=== PATIENT | male | born 1960 | race Caucasian/White ===

== ENCOUNTER → 2018-04-06 09:18 | Outpatient (CLI) | payer OTHER, SELFPAY | PROVIDERS: PCP Family Medicine; Visit Provider Family Medicine | DX: Z13.6 Encounter for screening for cardiovascular disorders (principal) | CPT/HCPCS: 93017 ==

== ENCOUNTER → 2019-06-05 15:30 | Outpatient (CLI) | payer OTHER, SELFPAY ==
--- NOTE | 2019-06-05 15:33 | XR_ITS ---
PROCEDURE: XR CHEST 2V CLINICAL HISTORY: MODERATE ASTHMATIC BRONCHITIS Cough COMPARISON: CXR CHEST(2 VIEWS-NOT PORTABLE) from 03/15/2013 CXR CHEST(2 VIEWS-NOT PORTABLE) from 05/13/2015 [id number] XR ribs LT min 3V w CXR1V from 11/03/2017 FINDINGS: The cardiomediastinal silhouette and pulmonary vascularity are within normal limits. The lungs are clear without infiltrates, suspicious nodules, or pleural effusions. No acute bony abnormalities. IMPRESSION: No acute findings. Dictated by: Anders Whitfield MD 06/05/2019 16:34 Electronically signed by Anders Whitfield MD in [place] 06/05/2019 16:34
== END ==
PROVIDERS: PCP Family Medicine; Visit Provider Family Medicine
DX: J45.41 Moderate persistent asthma with (acute) exacerbation (principal)
CPT/HCPCS: 71046

== ENCOUNTER 2019-07-16 06:38 | Observation (INO) ==
[2019-07-16 07:09] LABS: Basophils % 0.6 % (0.1-2.0); Eosinophils # 0.9 K/mm3 (0.0-0.4); Eosinophils % 13.8 % (0.1-12.0); Hematocrit 48.2 % (42.0-52.0); Hemoglobin 16.3 g/dL (14.1-18.0); Lymphocytes # 1.5 K/mm3 (0.7-4.5); Lymphocytes % 22.5 % (10-50); Mean Corpuscular HGB Conc 33.9 g/dL (31.8-35.4); Mean Corpuscular Volume 92.5 fl (80-94); Mean Platelet Volume 7.6 fl (7.4-10.4); Monocytes # 0.5 K/mm3 (0.1-1.0); Monocytes % 6.9 % (1.7-9.3); Neutrophils # 3.7 K/mm3 (1.8-7.8); Neutrophils % 56.3 % (37.0-80.0); Platelet Count 236 K/mm3 (142-424); Red Blood Count 5.22 M/mm3 (4.60-6.20); Red Cell Distribution Width 12.3 % (11.5-17.5); White Blood Count 6.6 K/mm3 (4.8-10.8)
[2019-07-16 07:19] LABS: Albumin Level 4.4 g/dl (3.5-5.0); Albumin/Globulin Ratio 1.8 (1.1-1.8); Anion Gap 13.7 mEq/L (5-15); Bilirubin,Total 0.5 mg/dl (0.2-1.3); Calcium 9.6 mg/dl (8.4-10.2); Globulin 2.4 g/dL (1.3-3.2); Total Protein,Serum 6.8 g/dl (6.3-8.2)
--- NOTE | 2019-07-16 08:05 | Emergency Department Note ---
ED Disposition Clinical Impression: Acute dyspnea, Acute exacerbation of chronic obstructive airways disease, Elevated troponin, SIRS (systemic inflammatory response syndrome) Disposition: Admitted as Observation Condition on Discharge: Good Referrals: Olamide Mueller MD [Primary Care Provider] - - Critical Care Critical Care Time: No Attestation: On 07/16/19, the high probability of a clinically significant, sudden or life threatening deterioration of the following system(s) required my full and direct attention, intervention and personal management. The time I documented below is in addition to time spent performing reported procedures but includes the following listed in this critical care notation. Medical Decision Making - Medical Records Medical records reviewed: Yes: I reviewed the patient's medical records. - Jonnathan Inquiry Pt receiving controlled substance: No Vital Signs: 07/16/19 06:53 07/16/19 07:10 Temperature 98.1 F Temperature Source Oral Pulse Rate 101 H Pulse Rate [Right Brachial] 116 H Respiratory Rate 26 H Blood Pressure [Right Arm] 151/82 H Blood Pressure Mean [Right Arm] 105 Blood Pressure Source [Right Arm] Automatic Cuff Blood Pressure Position [Right Arm] Sitting 02 Sat by Pulse Oximetry 88 L 93 L Oxygen Delivery Method Room Air Nasal Cannula Oxygen Flow Rate (LPM) 2 - Lab Data Lab results reviewed: Yes: I reviewed the patient's lab results. Lab Results 07/16/19 06:55: WBC 6.6, RBC 5.22, Hgb 16.3, Hct 48.2, MCV 92.5, MCH 31.3 H, MCHC 33.9, RDW 12.3, Plt Count 236, MPV 7.6, Neut % (Auto) 56.3, Lymph % (Auto) 22.5, [place] % (Auto) 6.9, Eos % (Auto) 13.8 H, Baso % (Auto) 0.6, Neut # (Auto) 3.7, Lymph # (Auto) 1.5, [place] # (Auto) 0.5, Eos # (Auto) 0.9 H, Baso # (Auto) 0.0 07/16/19 06:55: Sodium 139, Potassium 3.7, Chloride 104, Carbon Dioxide 25, Anion Gap 13.7, BUN 11, Creatinine 0.80, Estimated Creat Clear 110, Estimated GFR 99, Est GFR ( Amer) 119, Glucose 180 H, Calcium 9.6, Total Bilirubin 0.5, AST 23, ALT 28, Alkaline Phosphatase 73, Troponin I 0.15 H, Total Protein 6.8, Albumin 4.4, Globulin 2.4, Albumin/Globulin Ratio 1.8 07/16/19 06:55: Influenza Type A Ag Negative, Influenza Type B Ag Negative 07/16/19 06:55: Group A Strep Rapid Negative 07/16/19 06:55: Lactate 1.4 Result diagrams: 07/16/19 06:55 07/16/19 06:55 Orders (Tests/Meds): ED MEDICATIONS Discontinued Medications Generic Name Dose Route Start Last Admin Trade Name Freq PRN Reason Stop Dose Admin Albuterol/Ipratropium 3 ml 07/16/19 07:00 07/16/19 07:25 Duoneb 3ml Neb IH 07/16/19 07:01 3 ml ONCE ONE Administration Methylprednisolone Sodium Succinate 125 mg 07/16/19 07:00 07/16/19 07:02 Solu-Medrol 125mg/2ml Vial IV 07/16/19 07:01 125 mg ONCE ONE Administration ORDERS Category Date Time Status XR chest 2V Stat Exams 07/16/19 07:00 Taken Troponin I Q3H Lab 07/16/19 10:15 Ordered Troponin I Q3H Lab 07/16/19 13:15 Ordered Upper Respiratory Panel, PCR Stat Lab 07/16/19 07:10 Ordered Blood Culture Stat Micro 07/16/19 06:55 Received Strep Screen Confirmation Stat Micro 07/16/19 06:55 Received - Radiology Data #1 Image(s): Chest Image Reviewed: Yes I reviewed the patient's radiology image Preliminary Findings: Abnormal (copd) - ECG Data Tracing #1 Arrhythmias present: sinus tach Ischemic changes: non-specific ST-T wave changes - Physician Consults Physician Consulted: pop Reason -: Admission Additional Consult: inder Reason -: Pt condition - MARÍA ELENA Score for Non-Stemi Age of Patient: 60-69 years old Heart Rate: 110-149 bpm Systolic Blood Pressure: 140-159 mmHg Serum Creatinine: 0.80-1.19 mg/dl CHF [place] Class: I-No CHF Other Risk Factors: Elevated Cardiac Enzymes or Biomarkers Non-Stemi Risk Score: 127 Resp/SOB HPI - General Chief Complaint: Shortness of Breath/Dyspnea Stated Complaint: SOA.cough Time Seen by Provider: 07/16/19 07:10 Mode of Arrival: Family Vehicle Source of Information: Patient, Spouse, Medical Record Limitations: No Limitations Description of Symptoms (Recalled from ER Triage Doc. by RN): pt presents with severe shortness of air that he says began last night at 1700 and worsened thro ughout the night despite multiple albuterol neb treatments andhis inhaler; pt further states he has been on antibiotics for the last several months, and that as a copd'r he usually tries to get ahead of it when he feels something coming on. 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 denies any fever. denies any contact with anyone positive for the coronavirus. pt is alert, oriented, gcs 15. maintains only complaint is soa. - History of Present Illness pt with sob w/o chest pain over the last 2 days - has hx of copd but no fever or prod cough - no known ht dis and no known exposure to covd-19 Complaint: shortness of breath Onset (ago): day(s) Severity: moderate Known history of: COPD, diabetes Associated symptoms: denies other symptoms Treatment prior to arrival: none - Related Data Home oxygen amount: none Home Medications Medication Instructions Recorded Confirmed Albuterol Sulfate [Proair Hfa 2 puffs IH Q4HP PRN 11/03/17 11/03/17 90mcg/puff Inh] Dapagliflozin Propanediol [Farxiga] 10 mg PO BID 07/16/19 07/16/19 Dulaglutide [Trulicity] 1 inj SQ WEEKLY 07/16/19 07/16/19 Trazodone HCl 50 mg PO HS 07/16/19 07/16/19 Allergies Allergy/AdvReac Type Severity Reaction Status Date / Time No Known Allergies Allergy Verified 11/03/17 09:11 [facility] History - Hepatitis A Screen Drug use history?: No High risk sexual behaviors?: No History of sexually transmitted infection?: No Currently employed?: No Childcare worker?: No Do you have indoor plumbing?: Yes Do you have electricity?: Yes Attestation statement:: This patient has been screened for Hepatitis A risk factors. I have reviewed the patient's past medical history: Yes Medical History: Reports:: Diabetes Mellitus Type 2 Denies:: Cancer, MRSA Amputation: No Fractures: No - Social History Smoking Status: Never smoker Alcohol Intake: never ROS Obtained: Yes All systems reviewed & no additional complaints - Constitutional Constitutional: Denies fever(s) - Eyes Eyes: Denies change in vision - ENT Ears, Nose, Mouth, and Throat: Denies sore throat - Cardiovascular Cardiovascular: Reports as per HPI, Denies chest pain, Reports dyspnea - Respiratory Respiratory: Yes as per HPI, Yes cough, Yes dyspnea, No coughing up blood, No pain on inspiration - Gastrointestinal Gastrointestingal: Denies: abdominal pain - Genitourinary Male Genitourinary: Denies hematuria - Musculoskeletal Musculoskeletal: Denies joint pain, Denies joint swelling - Integumentary/Breasts Skin/Breast: Denies rash - Neurologic Neurologic: Denies focal weakness, Denies seizure-like activity Physical Exam - General General appearance: alert - Head Head exam: normocephalic - Eye Eye exam: Present: PERRL, EOMI - ENT ENT exam: Present: mucous membranes dry - Neck Neck exam: Present: trachea midline - Respiratory Respiratory exam: Present: wheezes. Absent: respiratory distress - Cardiovascular Cardiovascular exam: Present: regular rate, systolic murmur, +S4. Absent: rubs, gallop - Abdominal Exam Abdominal exam: Present: soft - Extremities Exam Extremities exam: Present: full ROM. Absent: calf tenderness - Neurological Exam Neurological exam: Present: alert, oriented X3, CN II-XII intact. Absent: motor sensory deficit - Psychiatric Psychiatric exam: Present: normal affect - Skin Skin exam: Absent: rash
[2019-07-16 08:27] LABS: Coronavirus 229E Not Detected (NotDetected); Coronavirus NL63 Not Detected (NotDetected); Coronavirus OC43 Not Detected (NotDetected); Coronovirus HKU1,PCR Not Detected (NotDetected)
--- NOTE | 2019-07-16 11:25 | History & Physical Report ---
*Chief complaint: Shortness of breath *History of present illness: This 59-year-old white male has a history of asthmatic bronchitis. He also has a strong family history of heart disease. 6 days ago he developed URI symptoms after being exposed to his 3-year-old granddaughter who had a cold. Symptoms showed up on Wednesday and Wednesday. he was better but Wednesday he developed cough. Wednesday he had cough and congestion and move some lawn furniture at about 6 PM and developed additional shortness of breath and chest tightness. He presented to the emergency room at [facility] at 6:00 AM. He was evaluated and admitted. There is no history that would indicate exposure to mullins virus 19. He has not run a fever during this period of time. It is of concern that his troponin was elevated at 0.15 in the emergency room. Repeat troponin at this time shows a 0.10. In the emergency room his EKG showed sinus tachycardia but no ST-T changes of concern. He does have type 2 diabetes mellitus. [facility] History Medical History: Reports:: Diabetes Mellitus Type 2, Hyperlipidemia, Hypertension Denies:: Cancer, Diabetes Mellitus Type 1, Internal Pacemaker, MRSA *Have you ever received a pneumonia vaccine?: Yes *Have you received a flu vaccine this season?: Yes Other Surgeries: No: Pacemaker Amputation: No Fractures: No - *Social History Educational Level: Completed College Smoking Status: Former smoker # Packs/Day (cigarettes): 1 Alcohol Intake: current Alcohol Intake Frequency:: 0-2 drinks per day *Occupational Status:: employed Household Members: spouse *Travel in the last 8 weeks: None Family Hx:: Coronary Artery Disease, Diabetes, Heart Attack, Hyperlipidemia, Hypertension Review of Systems - Constitutional Denies body ache(s), Denies chills, Denies lack of energy, Denies weakness - Eyes Denies change in vision - ENT Denies difficulty swallowing, Denies hoarseness, Denies dizziness - *Cardiovascular Reports chest pain (He states chest tightness and relates it to his chronic asthma.), Reports shortness of breath, Reports shortness of breath with activity, Denies irregular heart rhythm, Denies leg swelling, Denies lightheadedness, Denies shortness of breath when lying down, Denies rapid, pounding, or irregular heartbeat, Denies fainting - *Respiratory Reports chest congestion, Reports cough, Reports shortness of breath, Denies coughing up blood - *Gastrointestinal Denies abdominal pain, Denies change in bowel habits, Denies constipation - *Genitourinary Denies difficulty urinating - *Musculoskeletal Denies abnormal walking, Denies joint pain - Integumentary/Breasts Denies lesions - *Neurologic Denies localized weakness, Denies seizure-like activity - Psychiatric Denies abnormal sleep pattern, Denies lack of enjoyment, Denies anxiety - Allergic/Immunologic Denies GI upset with certain foods Meds Home Medications Medication Instructions Recorded Confirmed Type Albuterol Sulfate [Proair Hfa 2 puffs IH Q4HP PRN 11/03/17 07/16/19 History 90mcg/puff Inh] Dapagliflozin Propanediol [Farxiga] 10 mg PO BID 07/16/19 07/16/19 History Dulaglutide [Trulicity] 1 inj SQ WEEKLY 07/16/19 07/16/19 History Trazodone HCl 50 mg PO HS 07/16/19 07/16/19 History Allergies Allergy/AdvReac Type Severity Reaction Status Date / Time No Known Allergies Allergy Verified 11/03/17 09:11 Exam Vital signs and Labs for Last 24 Hours: Temp Pulse Resp BP Pulse Ox 98.0 F 112 H 18 132/84 91 L 07/16/19 09:01 07/16/19 09:01 07/16/19 09:01 07/16/19 09:01 07/16/19 09:01 Laboratory Results - last 24 hr 07/16/19 06:55: WBC 6.6, RBC 5.22, Hgb 16.3, Hct 48.2, MCV 92.5, MCH 31.3 H, MCHC 33.9, RDW 12.3, Plt Count 236, MPV 7.6, Neut % (Auto) 56.3, Lymph % (Auto) 22.5, [place] % (Auto) 6.9, Eos % (Auto) 13.8 H, Baso % (Auto) 0.6, Neut # (Auto) 3.7, Lymph # (Auto) 1.5, [place] # (Auto) 0.5, Eos # (Auto) 0.9 H, Baso # (Auto) 0.0 07/16/19 06:55: Sodium 139, Potassium 3.7, Chloride 104, Carbon Dioxide 25, Anion Gap 13.7, BUN 11, Creatinine 0.80, Estimated Creat Clear 110, Estimated GFR 99, Est GFR ( Amer) 119, Glucose 180 H, Calcium 9.6, Total Bilirubin 0.5, AST 23, ALT 28, Alkaline Phosphatase 73, Troponin I 0.15 H, Total Protein 6.8, Albumin 4.4, Globulin 2.4, Albumin/Globulin Ratio 1.8 07/16/19 06:55: Influenza Type A Ag Negative, Influenza Type B Ag Negative 07/16/19 06:55: Group A Strep Rapid Negative 07/16/19 06:55: Lactate 1.4 07/16/19 06:55: D-Dimer < 100 07/16/19 06:55: Magnesium 1.9 07/16/19 08:19: Chlamy pneumoniae PCR Not detected, Adenovirus (PCR) Not detected, B. pertussis DNA (PCR) Not detected, Coronavirus OC43 (PCR) Not detected, Coronavirus HKU1 (PCR) Not detected, Coronavirus 229E (PCR) Not detected, Coronavirus NL63 (PCR) Not detected, Human Metapneumovir PCR Not detected, Influenza A (H1) PCR Not detected, Influ A (H1N1/09) PCR Not detected, Influenza A (H3) PCR Not detected, Influenza Type A (PCR) Not detected, Influenza Type B (PCR) Not detected, M. pneumoniae (PCR) Not detected, Parainfluenza 1 (PCR) Not detected, Parainfluenza 2 (PCR) Not detected, Parainfluenza 3 (PCR) Not detected, Parainfluenza 4 (PCR) Not detected, RSV (PCR) Not detected, Entero/Rhino (PCR) Detected A 07/16/19 10:15: Troponin I 0.10 H Laboratory Tests 07/16/19 07/16/19 06:55 10:15 Troponin I 0.15 H 0.10 H I & O for Last 24 hours: Intake & Output 07/13/19 07/14/19 07/15/19 07/16/19 11:59 11:59 11:59 11:59 Weight 152 lb 6 oz - Constitutional no acute distress - *Routine HEENT Exam Eye: Present: PERRL ENT: Present: mucous membranes moist - *Routine Neck Exam Present: supple. Absent: JVD, carotid bruit - Routine Chest/Breast/Axilla Exam Chest wall: Absent: tenderness - *Routine Respiratory Exam Present: decreased breath sounds, wheezes - *Routine Cardiovascular Exam Present: tachycardia (Sinus) - *Routine Abdominal Exam Present: soft. Absent: tenderness - *Routine Extremities Exam Absent: edema - *Routine Neurological Exam Present: alert, oriented X3 H&P: Result - Imaging and Cardiology Chest x-ray Status: final report Assessment and Plan (1) Acute bronchitis with asthma with acute exacerbation Current visit: Yes Status: Acute Category: Medical Code(s): J20.9 - Acute bronchitis, unspecified; J45.901 - Unspecified asthma with (acute) exacerbation (2) Rhinovirus infection Current visit: Yes Status: Acute Category: Medical Code(s): B34.8 - Other viral infections of unspecified site (3) Type 2 diabetes mellitus Current visit: Yes Status: Acute Category: Medical Code(s): E11.9 - Type 2 diabetes mellitus without complications (4) Acute dyspnea Current visit: Yes Status: Acute Category: Medical Code(s): R06.00 - Dyspnea, unspecified (5) Elevated troponin Current visit: Yes Status: Acute Category: Medical Code(s): R79.89 - Other specified abnormal findings of blood chemistry - Assessment and plan all Dx Assessment and Plan for all problems:: See orders. Respiratory treatments. Steroids. Repeat EKG ordered. Cardiology consultation.
[2019-07-17 06:41] LABS: Anion Gap 13.2 mEq/L (5-15); Calcium 9.7 mg/dl (8.4-10.2); Chol/HDL Ratio 3.1 (1-3.5)
[2019-07-17 06:59] LABS: Hematocrit 47.1 % (42.0-52.0); Hemoglobin 15.6 g/dL (14.1-18.0); Lymphocytes # 0.5 K/mm3 (0.7-4.5); Lymphocytes % 5.7 % (10-50); Mean Corpuscular HGB Conc 33.2 g/dL (31.8-35.4); Mean Corpuscular Volume 94.2 fl (80-94); Monocytes # 0.2 K/mm3 (0.1-1.0); Neutrophils # 7.9 K/mm3 (1.8-7.8); Neutrophils % 92.2 % (37.0-80.0); Platelet Count 272 K/mm3 (142-424); Red Cell Distribution Width 12.6 % (11.5-17.5); White Blood Count 8.6 K/mm3 (4.8-10.8)
--- NOTE | 2019-07-17 07:46 | Consult Report ---
History of Present Illness Consult date: 07/17/19 Requesting physician: Olamide Mueller Consult reason: chest pain, shortness of breath Chief complaint: SOA, Chest pain Additional Medical History:: 1. Diabetes mellitus, type II, treated since 2001 with recent hemoglobin A1c in the 7-8 range 2. Cumulative tobacco use of 3-1/2 years over his lifetime (2 years in the 1980s and 6 months after his mother in 1998) 3. Family history of coronary artery disease in his older siblings in their 60s and 70s 4. Left carotid bruit on exam, 07/2019 5. Non-ST elevation PA, 07/2019 6. Respiratory illness, 07/2019 7. History of normal exercise Myoview, 2013 and normal Jose protocol stress test with no imaging, 2016 History of present illness: This 59-year-old white male has a history of asthmatic bronchitis. He also has a strong family history of heart disease. 6 days ago he developed URI symptoms after being exposed to his 3-year-old granddaughter who had a cold. Symptoms showed up on Wednesday and Wednesday. he was better but Wednesday he developed cough. Wednesday he had cough and congestion and move some lawn furniture at about 6 PM and developed additional shortness of breath and chest tightness. He presented to the emergency room at [facility] at 6:00 AM. He was evaluated and admitted. There is no history that would indicate exposure to mullins virus 19. He has not run a fever during this period of time. It is of concern that his troponin was elevated at 0.15 in the emergency room. Repeat troponin at this time shows a 0.10. In the emergency room his EKG showed sinus tachycardia but no ST-T changes of concern. He does have type 2 diabetes mellitus. The above per Dr. Mueller Patient relates 2 days of waxing and waning chest discomfort (like a gorilla sitting on his chest) prior to admission. No further chest pain since admission and application of nitroglycerin paste. History of exercise Myoview in 2013 with no ischemia and normal ejection fraction. Routine stress test normal in 2017 with 9-1/2 minutes of activity and 10.1 METS achieved. [facility] History Medical History: Reports:: Diabetes Mellitus Type 2, Hyperlipidemia, Hypertension Denies:: Cancer, Diabetes Mellitus Type 1, Internal Pacemaker, MRSA *Have you ever received a pneumonia vaccine?: Yes *Have you received a flu vaccine this season?: Yes Other Surgeries: No: Pacemaker Amputation: No Fractures: No - *Social History Educational Level: Completed College Smoking Status: Former smoker # Packs/Day (cigarettes): 1 Alcohol Intake: current Alcohol Intake Frequency:: 0-2 drinks per day *Occupational Status:: employed Household Members: spouse *Travel in the last 8 weeks: None Family Hx:: Coronary Artery Disease, Diabetes, Heart Attack, Hyperlipidemia, Hypertension Meds Home Medications Medication Instructions Recorded Confirmed Type Albuterol Sulfate [Proair Hfa 2 puffs IH Q4HP PRN 11/03/17 07/16/19 History 90mcg/puff Inh] Dapagliflozin Propanediol [Farxiga] 10 mg PO DAILY 07/16/19 07/17/19 History Dulaglutide [Trulicity] 1 inj SQ WEEKLY 07/16/19 07/16/19 History Trazodone HCl 50 mg PO HS 07/16/19 07/16/19 History Diclofenac Sodium [Diclofenac 75mg 75 mg PO BID 07/17/19 07/17/19 History Tab] Allergies Allergy/AdvReac Type Severity Reaction Status Date / Time No Known Allergies Allergy Verified 11/03/17 09:11 Review of Systems - Review of Systems Review of systems:: pertinent systems reviewed and negative unless documented below - *Cardiovascular Reports chest pain - *Respiratory Reports cough, Reports shortness of breath - *Gastrointestinal Denies loose stools, Denies nausea, Denies vomiting - *Genitourinary Denies blood in urine - *Musculoskeletal Denies joint pain, Denies back pain - *Neurologic Denies abnormal walking, Denies localized weakness, Denies seizure-like activity, Denies fainting, Denies dizziness, Denies weakness Exam Vital signs and Labs for Last 24 Hours: Temp Pulse Resp BP Pulse Ox 97.8 F 103 H 17 129/80 94 L 07/17/19 04:00 07/17/19 06:40 07/17/19 04:00 07/17/19 04:00 07/17/19 07:29 Laboratory Results - last 24 hr 07/16/19 06:55: D-Dimer < 100 07/16/19 06:55: Magnesium 1.9 07/16/19 08:19: Chlamy pneumoniae PCR Not detected, Adenovirus (PCR) Not detected, B. pertussis DNA (PCR) Not detected, Coronavirus OC43 (PCR) Not detected, Coronavirus HKU1 (PCR) Not detected, Coronavirus 229E (PCR) Not detected, Coronavirus NL63 (PCR) Not detected, Human Metapneumovir PCR Not detected, Influenza A (H1) PCR Not detected, Influ A (H1N1/09) PCR Not detected, Influenza A (H3) PCR Not detected, Influenza Type A (PCR) Not detected, Influenza Type B (PCR) Not detected, M. pneumoniae (PCR) Not detected, Parainfluenza 1 (PCR) Not detected, Parainfluenza 2 (PCR) Not detected, Parainfluenza 3 (PCR) Not detected, Parainfluenza 4 (PCR) Not detected, RSV (PCR) Not detected, Entero/Rhino (PCR) Detected A 07/16/19 10:15: Troponin I 0.10 H 07/16/19 13:00: Troponin I 0.08 H 07/17/19 05:45: WBC 8.6 D, RBC 5.00, Hgb 15.6, Hct 47.1, MCV 94.2 H, MCH 31.2, MCHC 33.2, RDW 12.6, Plt Count 272, MPV 7.0 L, Neut % (Auto) 92.2 H, Lymph % (Auto) 5.7 L, [place] % (Auto) 2.0, Eos % (Auto) 0.0 L, Baso % (Auto) 0.0 L, Neut # (Auto) 7.9 H, Lymph # (Auto) 0.5 L, [place] # (Auto) 0.2, Eos # (Auto) 0.0, Baso # (Auto) 0.0 07/17/19 05:45: Sodium 137, Potassium 4.2, Chloride 106, Carbon Dioxide 22, Anion Gap 13.2, BUN 19 D, Creatinine 0.70, Estimated Creat Clear 110, Estimated GFR 115, Est GFR ( Amer) 139, Glucose 196 H, Calcium 9.7, Triglycerides 55, Cholesterol 187, LDL Cholesterol Direct 108.63, VLDL Cholesterol 11, HDL Cholesterol 60, Cholesterol/HDL Ratio 3.1 I & O for Last 24 hours: Intake & Output 07/14/19 07/15/19 07/16/19 07/17/19 11:59 11:59 11:59 11:59 Intake Total 1796 / 1796 Balance 179 / 1796 Weight 152 lb 6 oz 152 lb 2 oz Microbiology Reports for the Last 24 Hours: Microbiology 07/16/19 00:00 Sputum - Expectorated Sputum Gram Stain - Final 07/16/19 00:00 Sputum - Expectorated Sputum Sputum Culture - Final - *Routine HEENT Exam Head: Present: normocephalic Eye: Present: EOMI, PERRL ENT: Present: mucous membranes moist - *Routine Neck Exam Present: supple. Absent: JVD - *Routine Respiratory Exam Present: rhonchi, wheezes. Absent: accessory muscle use, rales - *Routine Cardiovascular Exam Present: RRR, tachycardia. Absent: murmur, gallop, rubs - *Routine Abdominal Exam Present: soft. Absent: tenderness, distended, guarding - *Routine Extremities Exam Absent: edema, calf tenderness - *Routine Neurological Exam Present: alert, oriented X3, moving all extremities Assessment and Plan (1) Acute bronchitis with asthma with acute exacerbation Current visit: Yes Status: Acute Category: Medical Code(s): J20.9 - Acute bronchitis, unspecified; J45.901 - Unspecified asthma with (acute) exacerbation (2) Rhinovirus infection Current visit: Yes Status: Acute Category: Medical Code(s): B34.8 - Other viral infections of unspecified site (3) Type 2 diabetes mellitus Current visit: Yes Status: Acute Category: Medical Code(s): E11.9 - Type 2 diabetes mellitus without complications (4) Acute dyspnea Current visit: Yes Status: Acute Category: Medical Code(s): R06.00 - Dyspnea, unspecified (5) Elevated troponin Current visit: Yes Status: Acute Category: Medical Code(s): R79.89 - Other specified abnormal findings of blood chemistry - Assessment and plan all Dx Assessment and Plan for all problems:: 1. Elevated troponin in a long-term diabetic with concern for non-ST elevation PA. Patient would not be able to tolerate exercise stress testing or chemical stress testing due to his lung disease. Recommend proceeding with cardiac catheterization to further evaluate his coronary arteries. His EKG's show sinus rhythm with no acute ST segment changes noted. 2. Tachycardia felt secondary to respiratory illness (positive for rhinovirus, felt originated from exposure to granddaughter). Patient has remained afebrile during his stay. Chest x-ray was read as COPD with no infiltrates. 3. DM, type 2, per Dr. Mueller 4. Left carotid bruit, will obtain carotid ultrasound
--- NOTE | 2019-07-17 07:52 | Pharmacy Consult Notes ---
[facility] Pharmacy VTE Monitoring - Patient Demographics Admission date: 07/17/19 Report Date: 07/17/19 Time: 07:51 Allergies/Adverse Reactions: Patient Allergies No Known Allergies Allergy (Verified 11/03/17 09:11) Height: 1.85 m Weight: 69.003 kg Patient Problems: Current Active Problems Acute dyspnea (Acute) Acute exacerbation of chronic obstructive airways disease (Acute) Elevated troponin (Acute) SIRS (systemic inflammatory response syndrome) (Acute) Acute bronchitis with asthma with acute exacerbation (Acute) Rhinovirus infection (Acute) Type 2 diabetes mellitus (Acute) - VTE Risk Labs: VTE Related Lab Results Hgb 15.6 g/dL (14.1-18.0) 07/17/19 05:45 Hct 47.1 % (42.0-52.0) 07/17/19 05:45 Plt Count 272 K/mm3 (142-424) 07/17/19 05:45 BUN 19 mg/dl (9-20) D 07/17/19 05:45 Creatinine 0.70 mg/dl (0.66-1.25) 07/17/19 05:45 Estimated Creat Clear 110 mL/min (50-200) 07/17/19 05:45 Was VTE Risk Assessment Performed: Yes VTE Score: 3 VTE Risk Level: Low Risk Clinical Trial Participant: No - Prophylaxis VTE Prophylaxis Ordered?: Yes Types of VTE Prophylaxis: TEDS Knee High
[2019-07-17 08:05] LABS: Lymphocytes % 7 % (10-50); Monocytes % 5 % (2-9); Neutrophils % 88 % (42-76); Total Cells Counted 100
[2019-07-17 08:06] LABS: RBC Morphology Normal
--- NOTE | 2019-07-17 09:20 | Progress Note ---
Internal Medicine - PN: Subj *Date: 07/17/19 *Time: 09:18 Interval history: He feels much better. He rested better and slept for about an hour and a half. He is breathing much better. Heart catheterization is planned for this morning. Exam Vital signs and Labs for Last 24 Hours: Temp Pulse Resp BP Pulse Ox 97.9 F 104 H 18 129/78 95 07/17/19 08:00 07/17/19 08:00 07/17/19 08:00 07/17/19 08:00 07/17/19 08:00 Laboratory Results - last 24 hr 07/16/19 08:19: Chlamy pneumoniae PCR Not detected, Adenovirus (PCR) Not detected, B. pertussis DNA (PCR) Not detected, Coronavirus OC43 (PCR) Not detected, Coronavirus HKU1 (PCR) Not detected, Coronavirus 229E (PCR) Not detected, Coronavirus NL63 (PCR) Not detected, Human Metapneumovir PCR Not detected, Influenza A (H1) PCR Not detected, Influ A (H1N1/09) PCR Not detected, Influenza A (H3) PCR Not detected, Influenza Type A (PCR) Not detected, Influenza Type B (PCR) Not detected, M. pneumoniae (PCR) Not detected, Parainfluenza 1 (PCR) Not detected, Parainfluenza 2 (PCR) Not detected, Parainfluenza 3 (PCR) Not detected, Parainfluenza 4 (PCR) Not detected, RSV (PCR) Not detected, Entero/Rhino (PCR) Detected A 07/16/19 10:15: Troponin I 0.10 H 07/16/19 13:00: Troponin I 0.08 H 07/17/19 05:45: WBC 8.6 D, RBC 5.00, Hgb 15.6, Hct 47.1, MCV 94.2 H, MCH 31.2, MCHC 33.2, RDW 12.6, Plt Count 272, MPV 7.0 L, Neut % (Auto) 92.2 H, Lymph % (Auto) 5.7 L, [place] % (Auto) 2.0, Eos % (Auto) 0.0 L, Baso % (Auto) 0.0 L, Neut # (Auto) 7.9 H, Lymph # (Auto) 0.5 L, [place] # (Auto) 0.2, Eos # (Auto) 0.0, Baso # (Auto) 0.0, Total Counted 100, Neutrophils % (Manual) 88 H, Lymphocytes % (Manual) 7 L, Monocytes % (Manual) 5, Platelet Estimate Normal, RBC Morphology Normal 07/17/19 05:45: Sodium 137, Potassium 4.2, Chloride 106, Carbon Dioxide 22, Anion Gap 13.2, BUN 19 D, Creatinine 0.70, Estimated Creat Clear 110, Estimated GFR 115, Est GFR ( Amer) 139, Glucose 196 H, Calcium 9.7, Triglycerides 55, Cholesterol 187, LDL Cholesterol Direct 108.63, VLDL Cholesterol 11, HDL Cholesterol 60, Cholesterol/HDL Ratio 3.1 I & O for Last 24 hours: Intake & Output 07/14/19 07/15/19 07/16/19 07/17/19 11:59 11:59 11:59 11:59 Intake Total 1915 Balance 1915 Weight 152 lb 6 oz 152 lb 2 oz Microbiology Reports for the Last 24 Hours: Microbiology 07/16/19 00:00 Sputum - Expectorated Sputum Gram Stain - Final 07/16/19 00:00 Sputum - Expectorated Sputum Sputum Culture - Final - Constitutional no acute distress - *Routine Respiratory Exam Present: decreased breath sounds, CTA bilaterally, wheezes (Much less) - *Routine Extremities Exam Absent: edema Assessment and Plan (1) Acute bronchitis with asthma with acute exacerbation Current visit: Yes Status: Acute Category: Medical Code(s): J20.9 - Acute bronchitis, unspecified; J45.901 - Unspecified asthma with (acute) exacerbation (2) Rhinovirus infection Current visit: Yes Status: Acute Category: Medical Code(s): B34.8 - Other viral infections of unspecified site (3) Type 2 diabetes mellitus Current visit: Yes Status: Acute Category: Medical Code(s): E11.9 - Type 2 diabetes mellitus without complications (4) Acute dyspnea Current visit: Yes Status: Acute Category: Medical Code(s): R06.00 - Dyspnea, unspecified (5) Elevated troponin Current visit: Yes Status: Acute Category: Medical Code(s): R79.89 - Other specified abnormal findings of blood chemistry - Assessment and plan all Dx Assessment and Plan for all problems:: Heart catheterization planned for this morning.
--- NOTE | 2019-07-17 18:24 | Cardiology Report ---
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 Laterality: Bilateral Study Quality: Good Indications: left carotid bruit Risk Factors Hypertension: Hyperlipidemia Diabetes, Doppler Spectral Velocity Analysis dICA (R) 66.60/26.20 cm/sdICA (L) 44.00/20.60 cm/s Fabio (R) 74.10/25.40 cm/smICA (L) 56.60/18.30 cm/s pICA (R) 97.40/20.20 cm/spICA (L) 86.10/20.70 cm/s dCCA (R) 121.40/24.60 cm/sdCCA (L) 135.60/29.40 cm/s pCCA (R) 95.90/13.80 cm/spCCA (L) 147.20/29.40 cm/s Vert (R) 57.60/10.20 cm/sVert (L) 64.70/19.60 cm/s ICA/CCA 0.80 ICA/CCA 0.60 Findings Duplex evaluation demonstrates stenosis of the right proximal internal carotid artery <20% with PSV <140 cm/sec, EDV <100 cm/sec, and IC/CC Ratio <4.0.Duplex evaluation demonstrates stenosis of the left proximal internal carotid artery <20% with PSV <140 cm/sec, EDV <100 cm/sec, and IC/CC Ratio <4.0.Antegrade flow seen bilateral vertebral arteries. Conclusion No increased velocities to suggest hemodynamically significant stenosis in either internal carotid artery. Electronically signed by : Anders Whitfield MD 07/17/2019 18:23:42
[2019-07-18 06:57] LABS: Anion Gap 15.6 mEq/L (5-15); Calcium 9.5 mg/dl (8.4-10.2)
[2019-07-18 07:24] LABS: Eosinophils % 0.1 % (0.1-12.0); Hematocrit 47.3 % (42.0-52.0); Hemoglobin 15.6 g/dL (14.1-18.0); Lymphocytes # 0.6 K/mm3 (0.7-4.5); Lymphocytes % 4.5 % (10-50); Mean Corpuscular HGB Conc 32.9 g/dL (31.8-35.4); Mean Corpuscular Volume 96.3 fl (80-94); Monocytes # 0.3 K/mm3 (0.1-1.0); Monocytes % 1.9 % (1.7-9.3); Neutrophils # 12.7 K/mm3 (1.8-7.8); Neutrophils % 93.6 % (37.0-80.0); Platelet Count 257 K/mm3 (142-424); Red Blood Count 4.92 M/mm3 (4.60-6.20); Red Cell Distribution Width 12.7 % (11.5-17.5); White Blood Count 13.6 K/mm3 (4.8-10.8)
--- NOTE | 2019-07-18 08:57 | Progress Note ---
Subjective Date: 07/18/19 Time: 08:54 Principal diagnosis: NSTEMI Interval history: 59 yo WM in bed in NAD. Still with some SOA, cough and congestion but feels it is breaking up and improving. Results of [facility] reviewed and questions answered. Recommend pt off work up to 4-6 wks to recover. Exam Vital signs and Labs for Last 24 Hours: Temp Pulse Resp BP Pulse Ox 98.0 F 111 H 17 128/74 95 07/18/19 08:00 07/18/19 08:00 07/18/19 08:00 07/18/19 08:00 07/18/19 08:00 Laboratory Results - last 24 hr 07/18/19 06:30: WBC 13.6 H D, RBC 4.92, Hgb 15.6, Hct 47.3, MCV 96.3 H, MCH 31.7 H, MCHC 32.9, RDW 12.7, Plt Count 257, MPV 8.0, Neut % (Auto) 93.6 H, Lymph % (Auto) 4.5 L, [place] % (Auto) 1.9, Eos % (Auto) 0.1, Baso % (Auto) 0.0 L, Neut # (Auto) 12.7 H, Lymph # (Auto) 0.6 L, [place] # (Auto) 0.3, Eos # (Auto) 0.0, Baso # (Auto) 0.0 07/18/19 06:30: Sodium 139, Potassium 4.6, Chloride 105, Carbon Dioxide 23, Anion Gap 15.6 H, BUN 23 H, Creatinine 0.80, Estimated Creat Clear 98, Estimated GFR 99, Est GFR ( Amer) 119, Glucose 237 H, Calcium 9.5 I & O for Last 24 hours: Intake & Output 07/15/19 07/16/19 07/17/19 07/18/19 11:59 11:59 11:59 11:59 Intake Total 1915 Balance 1915 Weight 152 lb 6 oz 152 lb 2 oz 155 lb 3 oz Microbiology Reports for the Last 24 Hours: Microbiology 07/16/19 06:55 Blood Blood Culture - Preliminary NO GROWTH AFTER 48 HOURS 07/16/19 06:55 Blood Blood Culture - Preliminary NO GROWTH AFTER 48 HOURS 07/16/19 06:55 Throat Group A Streptococcus Screen (ALCON) - Final Negative for Group A Streptococcus. - *Routine HEENT Exam Head: Present: normocephalic Eye: Present: EOMI, PERRL ENT: Present: mucous membranes moist - *Routine Respiratory Exam Present: rhonchi, wheezes. Absent: accessory muscle use, rales - *Routine Cardiovascular Exam Present: RRR. Absent: murmur, gallop, rubs - *Routine Abdominal Exam Present: soft. Absent: tenderness, distended, guarding - *Routine Extremities Exam Absent: edema, calf tenderness - *Routine Neurological Exam Present: alert, oriented X3, moving all extremities Progress Note: A&P (1) Acute bronchitis with asthma with acute exacerbation Status: Acute Current Visit: Yes (2) Rhinovirus infection Status: Acute Current Visit: Yes (3) Type 2 diabetes mellitus Status: Acute Current Visit: Yes (4) Acute dyspnea Status: Acute Current Visit: Yes (5) NSTEMI (non-ST elevated myocardial infarction) Status: Acute Current Visit: Yes (6) CAD (coronary artery disease) Status: Acute Current Visit: Yes Assessment and Plan for All Diagnoses:: 1. NSTEMI with occluded Circumflex artery. Continue ASA, statin and plavix along with bisoprolol and isosorbide. No arrhythmias on telemetry. Ok for discharge home from cardiology standpoint with follow up in 1-2 wks. Off work for 4-6 wks due to NSTEMI and stress of job. Echo results pending but prelimi nary EF >60%. 2. DM, per PCP. 3. Rhinovirus
[2019-07-18 10:37] LABS: Lymphocytes % 7 % (10-50); Monocytes % 3 % (2-9); Neutrophils % 90 % (42-76); RBC Morphology Normal; Total Cells Counted 100
--- NOTE | 2019-07-18 11:11 | Progress Note ---
Internal Medicine - PN: Subj *Date: 07/18/19 *Time: 09:00 Interval history: He feels well. Slept 3 hours. From Cardiology: 1. NSTEMI with occluded Circumflex artery. Continue ASA, statin and plavix along with bisoprolol and isosorbide. No arrhythmias on telemetry. Ok for discharge home from cardiology standpoint with follow up in 1-2 wks. Off work for 4-6 wks due to NSTEMI and stress of job. Echo results pending but preliminary EF >60%. 2. DM, per PCP. 3. Rhinovirus Exam Vital signs and Labs for Last 24 Hours: Temp Pulse Resp BP Pulse Ox 98.0 F 111 H 17 128/74 95 07/18/19 08:00 07/18/19 08:00 07/18/19 08:00 07/18/19 08:00 07/18/19 08:00 Laboratory Results - last 24 hr 07/18/19 06:30: WBC 13.6 H D, RBC 4.92, Hgb 15.6, Hct 47.3, MCV 96.3 H, MCH 31.7 H, MCHC 32.9, RDW 12.7, Plt Count 257, MPV 8.0, Neut % (Auto) 93.6 H, Lymph % (Auto) 4.5 L, [place] % (Auto) 1.9, Eos % (Auto) 0.1, Baso % (Auto) 0.0 L, Neut # (Auto) 12.7 H, Lymph # (Auto) 0.6 L, [place] # (Auto) 0.3, Eos # (Auto) 0.0, Baso # (Auto) 0.0, Total Counted 100, Neutrophils % (Manual) 90 H, Lymphocytes % (Manual) 7 L, Monocytes % (Manual) 3, Platelet Estimate Normal, RBC Morphology Normal 07/18/19 06:30: Sodium 139, Potassium 4.6, Chloride 105, Carbon Dioxide 23, Anion Gap 15.6 H, BUN 23 H, Creatinine 0.80, Estimated Creat Clear 98, Estimated GFR 99, Est GFR ( Amer) 119, Glucose 237 H, Calcium 9.5 I & O for Last 24 hours: Intake & Output 07/15/19 07/16/19 07/17/19 07/18/19 11:59 11:59 11:59 11:59 Intake Total 1915 Balance 1915 Weight 152 lb 6 oz 152 lb 2 oz 155 lb 3 oz Microbiology Reports for the Last 24 Hours: Microbiology 07/16/19 06:55 Blood Blood Culture - Preliminary NO GROWTH AFTER 48 HOURS 07/16/19 06:55 Blood Blood Culture - Preliminary NO GROWTH AFTER 48 HOURS 07/16/19 06:55 Throat Group A Streptococcus Screen (ALCON) - Final Negative for Group A Streptococcus. - Constitutional no acute distress - *Routine HEENT Exam Head: Present: normocephalic Eye: Present: PERRL ENT: Present: mucous membranes moist - *Routine Respiratory Exam Present: decreased breath sounds, wheezes (bilaterally) - *Routine Cardiovascular Exam Present: RRR - *Routine Abdominal Exam Present: soft. Absent: tenderness - *Routine Extremities Exam Absent: edema Assessment and Plan (1) NSTEMI (non-ST elevated myocardial infarction) Current visit: Yes Status: Acute Category: Medical Code(s): I21.4 - Non-ST elevation (NSTEMI) myocardial infarction (2) Acute bronchitis with asthma with acute exacerbation Current visit: Yes Status: Acute Category: Medical Code(s): J20.9 - Acute bronchitis, unspecified; J45.901 - Unspecified asthma with (acute) exacerbation (3) Rhinovirus infection Current visit: Yes Status: Acute Category: Medical Code(s): B34.8 - Other viral infections of unspecified site (4) Type 2 diabetes mellitus Current visit: Yes Status: Acute Category: Medical Code(s): E11.9 - Type 2 diabetes mellitus without complications (5) Acute dyspnea Current visit: Yes Status: Acute Category: Medical Code(s): R06.00 - Dyspnea, unspecified (6) CAD (coronary artery disease) Current visit: Yes Status: Acute Category: Medical Code(s): I25.10 - Atherosclerotic heart disease of [place] coronary artery without angina pectoris - Assessment and plan all Dx Assessment and Plan for all problems:: needs further treatment for the bronchospasm. Perhaps discharge tomorrow.
--- NOTE | 2019-07-19 08:32 | Progress Note ---
Internal Medicine - PN: Subj *Date: 07/19/19 *Time: 08:30 Interval history: Patient states he is feeling better. Denies chest pain and shortness of breath. He is eating without difficulty. He ambulated in the hallway without problems. He is anxious to go home. Exam Vital signs and Labs for Last 24 Hours: Temp Pulse Resp BP Pulse Ox 97.9 F 101 H 16 119/70 93 L 07/19/19 08:00 07/19/19 08:00 07/19/19 08:00 07/19/19 08:00 07/19/19 08:00 Laboratory Results - last 24 hr 07/18/19 06:30: Total Counted 100, Neutrophils % (Manual) 90 H, Lymphocytes % (Manual) 7 L, Monocytes % (Manual) 3, Platelet Estimate Normal, RBC Morphology Normal I & O for Last 24 hours: Intake & Output 07/16/19 07/17/19 07/18/19 07/19/19 11:59 11:59 11:59 11:59 Intake Total 1915 / 2279 Balance 1915 / 2279 Weight 152 lb 6 oz 152 lb 2 oz 155 lb 3 oz 155 lb 3.005 oz Microbiology Reports for the Last 24 Hours: Microbiology 07/16/19 06:55 Blood Blood Culture - Preliminary NO GROWTH AFTER 48 HOURS 07/16/19 06:55 Blood Blood Culture - Preliminary NO GROWTH AFTER 48 HOURS 07/16/19 06:55 Throat Group A Streptococcus Screen (ALCON) - Final Negative for Group A Streptococcus. - Constitutional no acute distress - *Routine Respiratory Exam Comments: Occasional expiratory wheeze - *Routine Cardiovascular Exam Present: RRR - *Routine Abdominal Exam Present: soft, normoactive bowel sounds. Absent: tenderness - *Routine Extremities Exam Absent: edema, calf tenderness - *Routine Neurological Exam Present: alert, oriented X3 Assessment and Plan (1) NSTEMI (non-ST elevated myocardial infarction) Current visit: Yes Status: Acute Category: Medical Code(s): I21.4 - Non-ST elevation (NSTEMI) myocardial infarction (2) Acute bronchitis with asthma with acute exacerbation Current visit: Yes Status: Acute Category: Medical Code(s): J20.9 - Acute bronchitis, unspecified; J45.901 - Unspecified asthma with (acute) exacerbation (3) Rhinovirus infection Current visit: Yes Status: Acute Category: Medical Code(s): B34.8 - Other viral infections of unspecified site (4) Type 2 diabetes mellitus Current visit: Yes Status: Acute Category: Medical Code(s): E11.9 - Type 2 diabetes mellitus without complications (5) Acute dyspnea Current visit: Yes Status: Acute Category: Medical Code(s): R06.00 - Dyspnea, unspecified (6) CAD (coronary artery disease) Current visit: Yes Status: Acute Category: Medical Code(s): I25.10 - Atherosclerotic heart disease of [place] coronary artery without angina pectoris - Assessment and plan all Dx Assessment and Plan for all problems:: Probably home today.
--- NOTE | 2019-07-19 14:31 | Discharge Summary ---
General - General Admission date:: 07/16/19 Discharge date: 07/19/19 HPI HPI: This 59-year-old white male has a history of asthmatic bronchitis. He also has a strong family history of heart disease. 6 days ago he developed URI symptoms after being exposed to his 3-year-old granddaughter who had a cold. Symptoms showed up on Wednesday and Wednesday. he was better but Wednesday he developed cough. Wednesday he had cough and congestion and move some lawn furniture at about 6 PM and developed additional shortness of breath and chest tightness. He presented to the emergency room at [facility] at 6:00 AM. He was evaluated and admitted. There is no history that would indicate exposure to [place] virus 19. He has not run a fever during this period of time. It is of concern that his troponin was elevated at 0.15 in the emergency room. Repeat troponin at this time shows a 0.10. In the emergency room his EKG showed sinus tachycardia but no ST-T changes of concern. He does have type 2 diabetes mellitus. Hospital Course Hospital Course: The patient's initial chest x-ray showed borderline COPD but nothing acute. He had a PCR respiratory panel showing entero-/rhinovirus. His troponin was elevated. He was started on steroids and respiratory treatments and a repeat EKG was ordered. Cardiology was also consulted. They saw the patient and decided he would need a heart cath. He had this done and it showed mild to moderate disease of the LAD and RCA with mid circumflex acute occlusion. His LVEF was 55%. Cardiology recommended medical therapy with DAPT, statin, isoso rbide mononitrate, and a beta-maria fernanda if his blood pressure tolerated. The patient also had a carotid duplex showing no increased velocities to suggest hemodynamically significant stenosis in either artery. The patient began feeling much better. His breathing improved. Cardiology felt he was stable to be discharged home but should remain off work up to 4 to 6 weeks to recover. His echo did show an EF of greater than 60%. The patient's blood culture showed no growth and his throat culture was negative. He did need further treatment for bronchospasm and was kept for an additional day. By 07/19/2019 he was feeling much better and denied any chest pain or shortness of breath. He was able to ambulate in the hallway and was anxious to go home. He was stable to be discharged home and will follow up with cardiology in 1 to 2 weeks. Objective Vital signs: Temp Pulse Resp BP Pulse Ox 97.9 F 92 H 16 119/70 93 L 07/19/19 08:00 07/19/19 10:07 07/19/19 08:00 07/19/19 08:00 07/19/19 08:00 Narrative: - Constitutional no acute distress - *Routine HEENT Exam Eye: Present: PERRL ENT: Present: mucous membranes moist - *Routine Neck Exam Present: supple. Absent: JVD, carotid bruit - Routine Chest/Breast/Axilla Exam Chest wall: Absent: tenderness - *Routine Respiratory Exam Present: decreased breath sounds, wheezes - *Routine Cardiovascular Exam Present: tachycardia (Sinus) - *Routine Abdominal Exam Present: soft. Absent: tenderness - *Routine Extremities Exam Absent: edema - *Routine Neurological Exam Present: alert, oriented X3 Results Labs on day of discharge: Preliminary micro results at discharge 07/16/19 06:55 Blood Culture - Preliminary Blood NO GROWTH AFTER 48 HOURS 07/16/19 06:55 Blood Culture - Preliminary Blood NO GROWTH AFTER 48 HOURS DS: Diagnosis - Discharge Diagnosis (1) NSTEMI (non-ST elevated myocardial infarction) Status: Acute (2) Acute bronchitis with asthma with acute exacerbation Status: Acute (3) Rhinovirus infection Status: Acute (4) Type 2 diabetes mellitus Status: Acute (5) Acute dyspnea Status: Acute (6) CAD (coronary artery disease) Status: Acute Discharge Plan - Patient Discharge Instructions ACTIVITY: Limited activity DIET: continue same diet Patient Instructions: DI for Heart Attack, Chronic Obstructive Pulmonary Disease, Coronary Artery Disease, Acute Bronchitis, DI for Diabetes Type 1 -- Adult - Follow up Plan Follow up with: Olamide Mueller MD [Primary Care Provider] - 07/26/19 11:30 am Kamlesh Brunson MD [Staff Physician] - 07/31/19 9:50 am Unknown provider or service follow up:: 07/19/19 11:04 Needs cardiology appt Disposition: Home, Self-Halfway Medications: Home Medications Medication Instructions Recorded Confirmed Type Albuterol Sulfate [Proair Hfa 2 puffs IH Q4HP PRN 11/03/17 07/16/19 History 90mcg/puff Inh] Dapagliflozin Propanediol [Farxiga] 10 mg PO DAILY 07/16/19 07/17/19 History Dulaglutide [Trulicity] 1 inj SQ WEEKLY 07/16/19 07/16/19 History Trazodone HCl 50 mg PO HS 07/16/19 07/16/19 History Aspirin [Aspirin 81mg EC Tab] 81 mg PO DAILY tablet. 07/19/19 Rx Atorvastatin Calcium [Lipitor 40mg 40 mg PO HS #30 tab 07/19/19 Rx Tablet] Clopidogrel Bisulfate [Plavix 75mg 75 mg PO DAILY #30 tab 07/19/19 Rx Tab] bisoproloL fumarate [Zebeta 5mg 5 mg PO DAILY #30 tab 07/19/19 Rx tablet] levoFLOXacin [Levaquin 750mg 750 mg PO 1100 5 Days tab 07/19/19 Rx tablet] predniSONE [Deltasone 10mg tablet] 10 mg PO DAILY 30 Days #30 tab 07/19/19 Rx Prescriptions/Medication Reconciliation: New levoFLOXacin [Levaquin 750mg tablet] 750 mg PO 1100 5 Days tab Atorvastatin Calcium [Lipitor 40mg Tablet] 40 mg PO HS #30 tab Clopidogrel Bisulfate [Plavix 75mg Tab] 75 mg PO DAILY #30 tab Aspirin [Aspirin 81mg EC Tab] 81 mg PO DAILY tablet. predniSONE [Deltasone 10mg tablet] 10 mg PO DAILY 30 Days #30 tab bisoproloL fumarate [Zebeta 5mg tablet] 5 mg PO DAILY #30 tab Continued Albuterol Sulfate [Proair Hfa 90mcg/puff Inh] 2 puffs IH Q4HP PRN PRN Reason: Shortness Of Breath Or Wheezing Dulaglutide [Trulicity] 1 inj SQ WEEKLY Dapagliflozin Propanediol [Farxiga] 10 mg PO DAILY Trazodone HCl 50 mg PO HS Discontinued Diclofenac Sodium [Diclofenac 75mg Tab] 75 mg PO BID - Problem Reconciliation Problems Reviewed?: Yes
--- NOTE | 2019-07-21 07:58 | Electrocardiograph Report ---
APPROVED REPORT Exam: Resting ECG HR:116 bpm ECG Measurements Heart Rate 116 AXES NC 156 P 81 QRSd 86 QRS 83 QT 342 T91 QTc 475 <Conclusion> Sinus tachycardia Otherwise normal ECG Electronically signed by : Usman Gonzalez, 07/21/2019 07:57:26
--- NOTE | 2019-07-21 07:58 | Electrocardiograph Report ---
APPROVED REPORT Exam: Resting ECG HR:121 bpm ECG Measurements Heart Rate 121 AXES MT 152 P 72 QRSd 86 QRS 87 QT 310 T58 QTc 440 <Conclusion> Sinus tachycardia Otherwise normal ECG Electronically signed by : Usman Gonzalez, 07/21/2019 07:57:29
== END 2019-07-19 13:13 | disposition home or self-care (01) ==
LOC: 2ND 06:38 → ER 06:38 → 2ND 09:06
PROVIDERS: ADMIT Family Medicine; ATTEND Family Medicine
CPT/HCPCS: 71020; 71046; 80048; 80053; 80061; 83605; 83735; 84484; 85007; 85025; 85378; 87040; 87205; 87275; 87276; 87430; 87486; 87581; 87633; 87798; 93005; 93306; 93458; 93880; 94640; 94761; 96365; 96375; 99152; 99285; C1725; C1769; G0378; J1644; J1956; Q9967

== ENCOUNTER → 2019-08-16 10:39 | Outpatient (CLI) | payer OTHER, SELFPAY | PROVIDERS: PCP Family Medicine; Visit Provider Family Medicine | DX: I25.2 Old myocardial infarction (principal) | CPT/HCPCS: 93225; 93226 ==

== ENCOUNTER 2020-08-17 11:00 | Emergency (ER) | payer OTHER, SELFPAY ==
[2020-08-17 11:00] VITALS: BP 101/74; PULSE 108; RESP 19; TEMP 36.9; O2SAT 95; BMI 48.9
--- NOTE | 2020-08-17 11:30 | PC.NURSE ---
PATIENT STATES HE IS FEELING MUCH BETTER AT THIS TIME. ITCHING AND REDNESS HAVE DECREASED.
--- NOTE | 2020-08-17 11:30 | HMH.EDUTC ---
[facility] [place] Clinical Impression: Allergic reaction Qualifiers: Encounter type: initial encounter Qualified Code(s): T78.40XA - Allergy, unspecified, initial encounter Disposition: Home, Self-Care Condition on Discharge: Good Instructions: DI for Hives Additional Instructions: follow up with pcp for poss allergy testing or epi pens continue benadryl as needed if symptoms return or worsen return watch glucose close for couple days Prescriptions: Triamcinolone Acetonide 15 gm TP BID 5 Days #1 tube Prescription Printed Referrals: Olamide Mueller MD [Primary Care Provider] - Time of Disposition: 12:36 Medical Decision Making - Jonnathan Inquiry Pt receiving controlled substance: No Vital Signs: 08/17/20 11:00 Temperature 98.4 F Temperature Source Oral Pulse Rate [Right Brachial] 108 H Respiratory Rate 19 Blood Pressure [Right Arm] 101/74 L Blood Pressure Mean [Right Arm] 83 Blood Pressure Source [Right Arm] Automatic Cuff Blood Pressure Position [Right Arm] Sitting 02 Sat by Pulse Oximetry 95 Orders (Tests/Meds): ED MEDICATIONS Generic Name Dose Route Start Last Admin Trade Name Freq PRN Reason Stop Dose Admin Sodium Chloride 8 ml 08/17/20 11:25 08/17/20 11:20 Sodium Chloride 0.9% 10ml Vial IV 09/16/20 11:24 8 ml NEEDED PRN Administration dilute pepcid Discontinued Medications Generic Name Dose Route Start Last Admin Trade Name Freq PRN Reason Stop Dose Admin Dexamethasone Sodium Phosphate 8 mg 08/17/20 11:25 08/17/20 11:20 Dexamethasone 4mg/Ml 1ml Vial IV 08/17/20 11:26 8 mg ONCE ONE Administration Famotidine 20 mg 08/17/20 11:25 08/17/20 11:20 Famotidine 20mg/2ml Vial IV 08/17/20 11:26 20 mg ONCE ONE Administration [facility] [place] HPI - General Chief complaint: Urgent Treatment Center Stated complaint: possible allergic reaction, rash Time Seen by Provider: 08/17/20 11:20 Mode of Arrival: Ambulatory Source of Information: Patient, Spouse Limitations: No Limitations Description of Symptoms (Recalled from Triage Doc. by RN): PATIENT STATES HE WAS CUTTING WEEDS THIS MORNING AND STARTED BREAKING OUT IN HIVES, REDNESS, ITCHING, AND SWELLING IN ARMS, BACK, LEGS, AND ABDOMEN. NO SOA AT THIS TIME HEENT Symptoms (Recalled from RN notes): No Resp Symptoms (Recalled from RN notes): No Skin Symptoms (Recalled from RN notes): Yes MS Symptoms (Recalled from RN notes): No Functional Status (Recalled from RN notes): WNL - History of Present Illness Provider Complaint: 60 yr old male presents for allergic reaction after cutting weeds. pt states this morning as he was cutting weeds he started to break out in hives with welps on chest,back,arms,legs, and neck,itching and swelling in the hands. pt denies soa or swelling of lips or throat - Related Data Home Medications Medication Instructions Recorded Confirmed Albuterol Sulfate [Proair Hfa 2 puffs IH Q4HP PRN 11/03/17 02/14/20 90mcg/puff Inh] Dapagliflozin Propanediol [Farxiga] 10 mg PO DAILY 07/16/19 02/14/20 Trazodone HCl 50 mg PO HS 07/16/19 02/14/20 cyclobenzaprine 10 mg tablet 10 mg PO TID PRN tab 09/04/19 02/14/20 diclofenac sodium 75 mg 75 mg PO DAILY tab 11/15/19 02/14/20 tablet,delayed release dulaglutide 0.75 mg/0.5 mL 1.5 mg SQ WEEKLY ml 02/14/20 02/14/20 subcutaneous pen injector Previous Rx's Medication Instructions Recorded aspirin 81 mg tablet,delayed 81 mg PO DAILY #90 tab 02/14/20 release atorvastatin 40 mg tablet 40 mg PO HS #90 tab 08/14/20 bisoprolol fumarate 10 mg tablet 10 mg PO DAILY #90 tab 08/14/20 clopidogrel 75 mg tablet 75 mg PO DAILY #90 tab 08/14/20 isosorbide mononitrate 30 mg 30 mg PO DAILY #90 tab 08/14/20 tablet,extended release 24 hr Triamcinolone Acetonide 15 gm TP BID 5 Days #1 tube 08/17/20 Allergies Allergy/AdvReac Type Severity Reaction Status Date / Time No Known Allergies Allergy Verified 08/14/20 08:51 - Worker's Comp Is thi
[2020-08-17 12:31] VITALS: BP 101/74; PULSE 108; RESP 19; TEMP 36.9; O2SAT 95
== END 2020-08-17 12:44 | disposition home or self-care (01) ==
PROVIDERS: Emergency Provider Nurse Practitioner Family; PCP Family Medicine
DX: L50.6 Contact urticaria (principal); T78.40XA Allergy, unspecified, initial encounter; E11.9 Type 2 diabetes mellitus without complications; I10 Essential (primary) hypertension; E78.5 Hyperlipidemia, unspecified; Z79.899 Other long term (current) drug therapy
CPT/HCPCS: 96374; 96375; 99202; G0463

== ENCOUNTER 2020-12-28 08:58 | Emergency (ER) | payer OTHER, SELFPAY ==
[2020-12-28 09:07] VITALS: BP 140/87; PULSE 88; RESP 14; TEMP 36.6; O2SAT 98; BMI 22.4
[2020-12-28 09:44] VITALS: BP 140/87; PULSE 88; RESP 14; TEMP 36.6
--- NOTE | 2020-12-28 09:49 | HMH.EDUTC ---
[facility] [place] Disposition Clinical Impression: Viral syndrome, Exposure to COVID-19 virus Sinusitis Qualifiers: Sinusitis location: unspecified location Chronicity: acute Recurrence: non-recurrent Qualified Code(s): J01.90 - Acute sinusitis, unspecified Disposition: Home, Self-Care Condition on Discharge: Good Instructions: DI for Sinusitis, DI for COVID-19 (Suspected or Confirmed ), Preventing the Spread of Coronavirus Discharge Instructions Additional Instructions: Drink plenty of fluids. Take tylenol or ibuprofen for pain or fever. Take the medications as directed. Follow up with your regular doctor. GO TO THE ER FOR ANY WORSENING SYMPTOMS Quarantine until you know the results of your covid-19 test. If it is positive, the health department should call you and give you further instructions about your length of Quarantine and other things. Notify your school or workplace of your results and follow their instructions regarding return to work/school. Prescriptions: Benzonatate [Tessalon Perle 100mg Cap] 100 mg PO TIDP PRN #30 cap PRN Reason: Cough Transmission Status: Received by [facility] Azithromycin [Z-Crow 250mg Tab*] 250 mg PO UD DOSE PK #6 tab Transmission Status: Received by [facility] Referrals: Olamide Mueller MD [Primary Care Provider] - Time of Disposition: 09:52 Medical Decision Making - Medical Records Medical records reviewed: No: I reviewed the patient's medical records. - Jonnathan Inquiry Pt receiving controlled substance: No Vital Signs: 12/28/20 09:07 12/28/20 09:44 Temperature 97.8 F 97.8 F Temperature Source Oral Pulse Rate 88 Pulse Rate [Left] 88 Respiratory Rate 14 14 Blood Pressure 140/87 Blood Pressure [Right Arm] 140/87 Blood Pressure Mean [Right Arm] 104 02 Sat by Pulse Oximetry 98 - Lab Data Lab results reviewed: Yes: I reviewed the patient's lab results. Orders (Tests/Meds): ORDERS Category Date Time Status Covid-19 Nasal PCR ([facility]) Routine Lab 12/28/20 09:08 Received [facility] [place] HPI - General Stated complaint: fever, congestion, weakness Time Seen by Provider: 12/28/20 09:49 Mode of Arrival: Ambulatory Source of Information: Patient Limitations: No Limitations Description of Symptoms (Recalled from Triage Doc. by RN): pt c/o a fever, chest congestion and body aches since . HEENT Symptoms (Recalled from RN notes): No Resp Symptoms (Recalled from RN notes): Yes (chest congestion) Skin Symptoms (Recalled from RN notes): No MS Symptoms (Recalled from RN notes): No Functional Status (Recalled from RN notes): body aches - History of Present Illness Provider Complaint: He c/o cough and feeling bad for the past 3 days. - Related Data Home Medications Medication Instructions Recorded Confirmed Albuterol Sulfate [Proair Hfa 2 puffs IH Q4HP PRN 11/03/17 02/14/20 90mcg/puff Inh] Dapagliflozin Propanediol [Farxiga] 10 mg PO DAILY 07/16/19 02/14/20 Trazodone HCl 50 mg PO HS 07/16/19 02/14/20 cyclobenzaprine 10 mg tablet 10 mg PO TID PRN tab 09/04/19 02/14/20 diclofenac sodium 75 mg 75 mg PO DAILY tab 11/15/19 02/14/20 tablet,delayed release dulaglutide 0.75 mg/0.5 mL 1.5 mg SQ WEEKLY ml 02/14/20 02/14/20 subcutaneous pen injector Previous Rx's Medication Instructions Recorded aspirin 81 mg tablet,delayed 81 mg PO DAILY #90 tab 02/14/20 release atorvastatin 40 mg tablet 40 mg PO HS #90 tab 08/14/20 bisoprolol fumarate 10 mg tablet 10 mg PO DAILY #90 tab 08/14/20 clopidogrel 75 mg tablet 75 mg PO DAILY #90 tab 08/14/20 isosorbide mononitrate 30 mg 30 mg PO DAILY #90 tab 08/14/20 tablet,extended release 24 hr Triamcinolone Acetonide 15 gm TP BID 5 Days #1 tube 08/17/20 Azithromycin [Z-Crow 250mg Tab*] 250 mg PO UD DOSE PK #6 tab 12/28/20 Benzonatate [Tessalon Perle 100mg 100 mg PO TIDP PRN #30 cap 12/28/20 Cap] Allergies Allergy/AdvReac Type Severity Reaction Status Date / Time No Known Aller
== END 2020-12-28 09:58 | disposition home or self-care (01) ==
PROVIDERS: Emergency Provider Nurse Practitioner Family; PCP Family Medicine
DX: B34.9 Viral infection, unspecified (principal); Z20.822 Contact with and (suspected) exposure to COVID-19; J01.90 Acute sinusitis, unspecified
CPT/HCPCS: 99202; G0463; U0003

== ENCOUNTER 2021-04-04 20:03 | Emergency (ER) | payer OTHER, SELFPAY ==
[2021-04-04 20:17] VITALS: BP 144/88; PULSE 92; RESP 18; TEMP 36.7; O2SAT 98; BMI 22.1
--- NOTE | 2021-04-04 20:28 | HMH.EDUTC ---
[facility] [place] Disposition Clinical Impression: Otitis media Qualifiers: Otitis media type: suppurative Chronicity: acute Laterality: bilateral Recurrence: non-recurrent Spontaneous tympanic membrane rupture: without spontaneous rupture Qualified Code(s): H66.003 - Acute suppurative otitis media without spontaneous rupture of ear drum, bilateral Disposition: Home, Self-Care Condition on Discharge: Good Instructions: Middle Ear Infection, Methylprednisolone Injection Additional Instructions: Drink plenty of fluids. Take tylenol for pain or fever. Take the medications as directed. Follow up with your regular doctor. GO TO THE ER FOR ANY WORSENING SYMPTOMS Prescriptions: Amoxicillin/Potassium Clav [Augmentin 875-125 Tablet] 1 tab PO Q12H 10 Days #20 tab Transmission Status: [facility] methylPREDNISolone [Medrol] 4 mg PO DIRECTED 6 Days #21 packet Transmission Status: Received by [facility] Referrals: Olamide Mueller MD [Primary Care Provider] - Time of Disposition: 20:49 Medical Decision Making - Medical Records Medical records reviewed: No: I reviewed the patient's medical records. - Jonnathan Inquiry Pt receiving controlled substance: No Vital Signs: 04/04/21 20:17 04/04/21 20:53 Temperature 98.0 F 98 F Temperature Source Oral Pulse Rate 92 H Pulse Rate [Left] 92 H Respiratory Rate 18 18 Blood Pressure 144/88 H Blood Pressure [Right Arm] 144/88 H Blood Pressure Mean [Right Arm] 106 02 Sat by Pulse Oximetry 98 Orders (Tests/Meds): ED MEDICATIONS Discontinued Medications Generic Name Dose Route Start Last Admin Trade Name Freq PRN Reason Stop Dose Admin Ceftriaxone Sodium 1 gm 04/04/21 20:35 04/04/21 20:52 Ceftriaxone 1gm Vial IM 04/04/21 20:36 1 gm ONCE ONE Administration Ibuprofen 800 mg 04/04/21 20:43 04/04/21 20:50 Ibuprofen 400 Mg Tablet PO 04/04/21 20:44 800 mg ONCE ONE Administration Lidocaine HCl 0 ml 04/04/21 20:35 04/04/21 20:52 Lidocaine 1% 5ml Pf Vial IM 04/04/21 20:36 2 ml ONCE ONE Administration Methylprednisolone Sodium Succinate 125 mg 04/04/21 20:35 04/04/21 20:51 Methylprednisolone Sod Succ 125mg Vial IM 04/04/21 20:36 125 mg ONCE ONE Administration [facility] [place] HPI - General Stated complaint: left ear Time Seen by Provider: 04/04/21 20:29 Mode of Arrival: Ambulatory Source of Information: Patient Limitations: No Limitations Description of Symptoms (Recalled from Triage Doc. by RN): pt c/o a L ear ache HEENT Symptoms (Recalled from RN notes): Yes (L ear ache) Resp Symptoms (Recalled from RN notes): No Skin Symptoms (Recalled from RN notes): No MS Symptoms (Recalled from RN notes): No Functional Status (Recalled from RN notes): wnl - History of Present Illness Provider Complaint: He states that he began having left ear pain and pressure earlier today. He did have some mild sinus congestion for the past couple of days, but he did not feel bad until his ear started hurting. He denies significant cough or chest congestion. - Related Data Home Medications Medication Instructions Recorded Confirmed Albuterol Sulfate [Proair Hfa 2 puffs IH Q4HP PRN 11/03/17 02/19/21 90mcg/puff Inh] Dapagliflozin Propanediol [Farxiga] 10 mg PO DAILY 07/16/19 02/19/21 Trazodone HCl 50 mg PO HS 07/16/19 02/19/21 cyclobenzaprine 10 mg tablet 10 mg PO TID PRN tab 09/04/19 02/19/21 dulaglutide 0.75 mg/0.5 mL 1.5 mg SQ WEEKLY ml 02/14/20 02/19/21 subcutaneous pen injector diclofenac sodium 75 mg 75 mg PO DAILY PRN tab 02/19/21 02/19/21 tablet,delayed release Previous Rx's Medication Instructions Recorded Triamcinolone Acetonide 15 gm TP BID 5 Days #1 tube 08/17/20 Benzonatate [Tessalon Perle 100mg 100 mg PO TIDP PRN #30 cap 12/28/20 Cap] aspirin 81 mg tablet,delayed 81 mg PO DAILY #90 tab 02/19/21 release atorvastatin 40 mg tablet 40 mg PO HS #90 tab 02/19/21 bisoprolol fu
[2021-04-04 20:53] VITALS: BP 144/88; PULSE 92; RESP 18; TEMP 36.6
== END 2021-04-04 21:27 | disposition home or self-care (01) ==
PROVIDERS: Emergency Provider Nurse Practitioner Family; PCP Family Medicine
DX: H66.003 Acute suppurative otitis media without spontaneous rupture of ear drum, bilateral (principal); I25.10 Atherosclerotic heart disease of native coronary artery without angina pectoris; E11.9 Type 2 diabetes mellitus without complications; E78.5 Hyperlipidemia, unspecified; Z79.899 Other long term (current) drug therapy
CPT/HCPCS: 96372; 99202; G0463

== ENCOUNTER 2023-02-28 14:50 | Emergency (ER) | payer OTHER, SELFPAY ==
[2023-02-28] VITALS (7 sets, daily range): BP systolic 137–170; BP diastolic 79–93; PULSE 82–97; RESP 16–21; TEMP 36.6–36.8; O2SAT 97–98; BMI 19.1
[2023-02-28 15:01] LABS: POC Glucose,Bedside 390 (70-110)
[2023-02-28 15:18] LABS: Basophils % 0.1 % (0.1-2.0); Eosinophils % 0.4 % (0.1-12.0); Hematocrit 45.3 % (42.0-52.0); Hemoglobin 15.7 g/dL (14.1-18.0); Lymphocytes # 0.8 K/mm3 (0.7-4.5); Lymphocytes % 8.9 % (10-50); Mean Corpuscular HGB Conc 34.7 g/dL (31.8-35.4); Mean Corpuscular Hemoglobin 31.9 pg (27.0-31.2); Mean Corpuscular Volume 92.2 fl (80-94); Mean Platelet Volume 7.9 fl (7.4-10.4); Monocytes # 0.5 K/mm3 (0.1-1.0); Monocytes % 5.1 % (1.7-9.3); Neutrophils # 7.7 K/mm3 (1.8-7.8); Neutrophils % 85.5 % (37.0-80.0); Platelet Count 246 K/mm3 (142-424); Red Blood Count 4.92 M/mm3 (4.60-6.20); Red Cell Distribution Width 13.6 % (11.5-17.5)
[2023-02-28 15:20] LABS: VBG Base Excess -6.3 mmol/L (-2.4-2.3); VBG Oxygen Saturation 84.8 % (50-70); VBG PCO2 33.4 mmol/L (35-51); VBG PH 7.37 mmol/L (7.31-7.41); VBG PO2 46.8 mmol/L (28-40)
[2023-02-28 15:24] LABS: Chloride 104 mmol/L (98-107); Potassium 4.5 mmoL/L (3.5-5.1); Sodium 139 mmol/L (136-145)
[2023-02-28 15:26] LABS: Alanine Aminotransferase 36 U/L (12-78); Aspartate Amino Transferase 30 U/L (17-59); Blood Urea Nitrogen 19 mg/dl (9-20); Creatinine Clearance Estimated 70 mL/min (50-200); Estimated Glomerular Filt Rate 85 ml/min (>60); GFR (African American) 103 ML/MIN (>60); MANUAL DIFFERENTIAL MANUAL DIFFERENTIAL (MANUAL DIFF)
[2023-02-28 15:27] LABS: Albumin Level 4.6 g/dl (3.5-5.0); Albumin/Globulin Ratio 1.8 (1.1-1.8); Alkaline Phosphatase 59 U/L (38-126); Anion Gap 17.5 mEq/L (5-15); Calcium 8.9 mg/dl (8.4-10.2); Carbon Dioxide 22 mmol/L (22.0-30.0); Globulin 2.5 g/dL (1.3-3.2); Glucose 381 mg/dl (74-100); Lipase 32 U/L (23-300); Total Protein,Serum 7.1 g/dl (6.3-8.2)
--- NOTE | 2023-02-28 15:28 | HMH.EDGENADL ---
Discharge Plan Disposition Patient Disposition: Home, Self-Care Prescriptions Prescriptions: New promethazine 12.5 mg tablet 12.5 mg PO TID PRN (Reason: nausea and vomiting) Qty: 9 0RF No Action cyclobenzaprine 10 mg tablet 10 mg PO TID PRN Patient Comments: TAKE 1 TABLET BY MOUTH THREE TIMES DAILY NEEDED atorvastatin 40 mg tablet 40 mg PO HS Qty: 90 3RF bisoprolol fumarate 10 mg tablet 10 mg PO DAILY Qty: 90 3RF clopidogrel 75 mg tablet 75 mg PO DAILY Qty: 90 3RF isosorbide mononitrate 30 mg tablet extended release 24 hr 30 mg PO DAILY Qty: 90 3RF diclofenac sodium 75 mg tablet,delayed release (DR/EC) 75 mg PO DAILY PRN aspirin 81 mg tablet,delayed release (DR/EC) 81 mg PO DAILY Qty: 90 3RF peg 3350-electrolytes [Golytely] 236-22.74-6.74 -5.86 gram recon soln 240 ml PO Q10M Qty: 4000 0RF Rx Instructions: until fecal effluent is clear albuterol sulfate 8.5 GM HFA aerosol inhaler 2 puffs IH Q4HP PRN (Reason: Shortness Of Breath Or Wheezing) triamcinolone acetonide 15 GM cream 15 gm TP BID 5 Days Qty: 1 0RF dapagliflozin propanediol 10 MG tablet 10 mg PO DAILY trazodone 50 MG tablet 50 mg PO HS dulaglutide 0.75 mg/0.5 mL pen injector 1.5 mg SQ WEEKLY Referrals Follow up/Referrals: Provider,Referral, MD [Primary Care Provider] - See instructions Activity Restrictions/Add. Instructions Additional Instructions/Restrictions: At this time it was felt you are safe to be discharged home. If new or worsening symptoms please do not hesitate to return the emergency department. Please follow-up with your family doctor this week. Take your medication as prescribed. Clinical Impressions Clinical Impression: Vomiting, Diarrhea, Hyperglycemia Discharge ED Provider: Carlos Moy General Adult HPI General Chief complaint: Nausea/Vomiting/Diarrhea Stated complaint: Nausea,vomiting Time Seen by Provider: 02/28/23 15:00 Mode of Arrival: EMS Source of Information: Patient Limitations: No Limitations Description of Symptoms (Recalled from ER Triage Doc. by RN): pt presents to ED via ems for weakness, nausea, increased glucose levels. pt reports for the past 36 hrs he has been unable to keep anything down and has been unable to take his medication. History of Present Illness HPI narrative: Patient is a 62-year-old male with past medical history of [id number] diabetes, coronary artery disease status post stenting who presents emergency department for evaluation of vomiting and diarrhea. Onset was acute, over the last 36 hours. Patient was on a camping trip, positive sick contacts. Due to inability to tolerate p.o. and profound weakness he presents here for continued evaluation. Vomiting diarrhea been nonbloody. No other acute complaints at this time. Related Data Home Medications Medication Instructions Recorded Confirmed albuterol sulfate 90 mcg/actuation 2 puffs IH Q4HP PRN Shortness Of 11/03/17 08/19/21 aerosol inhaler Breath Or Wheezing dapagliflozin propanediol 10 mg 10 mg PO DAILY Diabetes 07/16/19 08/19/21 tablet trazodone 50 mg tablet 50 mg PO HS SLEEP 07/16/19 08/19/21 cyclobenzaprine 10 mg tablet 10 mg PO TID PRN 09/04/19 08/19/21 dulaglutide 0.75 mg/0.5 mL 1.5 mg SQ WEEKLY Diabetes 02/14/20 08/19/21 subcutaneous pen injector diclofenac sodium 75 mg 75 mg PO DAILY PRN 02/19/21 08/19/21 tablet,delayed release Previous Rx's Medication Instructions Recorded triamcinolone acetonide 0.5 % 15 gm TP BID 5 days #1 tube 08/17/20 topical cream aspirin 81 mg tablet,delayed 81 mg PO DAILY #90 tabs 02/19/21 release atorvastatin 40 mg tablet 40 mg PO HS #90 tabs 08/19/21 bisoprolol fumarate 10 mg tablet 10 mg PO DAILY #90 tabs 08/19/21 clopidogrel 75 mg tablet 75 mg PO DAILY #90 tabs 08/19/21 isosorbide mononitrate 30 mg 30 mg PO DAILY #90 tabs 08/19/21 tablet,extended release 24 hr peg 3350-el
[2023-02-28 15:29] LABS: Acetone, Serum (Rapid) None Detected (None Detect)
[2023-02-28 15:37] LABS: Coronavirus 19, PCR Not Detected (NotDetected); Influenza A, PCR Not Detected (NotDetected); Influenza B, PCR Not Detected (NotDetected)
[2023-02-28 16:46] LABS: Hypochromasia 1+; Lymphocytes % 11 % (10-50); Monocytes % 2 % (2-9); Neutrophils % 87 % (42-76); Platelet Estimate Normal; Total Cells Counted 100
[2023-02-28 16:57] LABS: Microscopic, Urine URINE MICROSCOPIC (MICROSCOPIC)
[2023-02-28 17:00] LABS: Appearance,Urine CLEAR (Clear); Blood, Urine Negative (Negative); Color,Urine YELLOW (Yellow); Glucose,Urine (UA) 3+ (Negative); Ketones,Urine 2+ (Negative); Leukocyte Esterase,Urine Negative (Negative); Nitrate,Urine Negative (Negative); PH,Urine 5.5 (5.0-8.5); Protein,Urine Negative (Negative); Urobilinogen,Urine 0.2 EU/dl (0.2)
[2023-02-28 17:02] LABS: Bilirubin,Urine 1+ (Negative)
[2023-02-28 17:23] LABS: Squamous Epithelial Cell,Urine Occasional #/hpf (0-5)
== END 2023-02-28 19:28 | disposition home or self-care (01) ==
PROVIDERS: Emergency Medicine; Emergency Provider Emergency Medicine
DX: E11.65 Type 2 diabetes mellitus with hyperglycemia (principal); R11.2 Nausea with vomiting, unspecified; I25.10 Atherosclerotic heart disease of native coronary artery without angina pectoris; I11.9 Hypertensive heart disease without heart failure; E78.5 Hyperlipidemia, unspecified; Z95.5 Presence of coronary angioplasty implant and graft; Z79.84 Long term (current) use of oral hypoglycemic drugs
CPT/HCPCS: 80053; 81001; 82009; 82803; 82962; 83690; 85007; 85025; 87636; 96361; 96374; 96375; 99284; J2405